=== PATIENT | male | born 1975 | race African-American/Black ===

== ENCOUNTER 2019-07-07 20:06 | Emergency (ER) | payer BC, OTHER ==
[2019-07-07] MEDS ORDERED: LIDOCAINE 2% INJ (20 MG/ML) 20 ML MDV INJ ONE (22:13)
[2019-07-07] MEDS ORDERED: LIDOCAINE 2% INJ (20 MG/ML) 20 ML MDV ONE (22:42)
--- NOTE | 2019-07-07 23:13 | ER Document Report ---
ED Wound - General Chief Complaint: Laceration Stated Complaint: LACERATION LEFT INDEX FINGER Time Seen by Provider: 07/07/19 22:13 Mode of Arrival: Ambulatory Information source: Patient TRAVEL OUTSIDE OF THE [place] IN LAST 30 DAYS: No - HPI Notes: Patient presents with a laceration to the index finger on the left hand. It is on the distal tip. He said he did it with a knife. It was not intentional. He now has pain to the distal aspect of his finger. It is constant. It radiates up the left arm. It is worse with movement and better with rest. It is a sharp sensation. It is moderate in intensity. He denies any other injuries. His tetanus is not up-to-date. Past Medical History - General Information source: Patient - Social History Smoking Status: Never Smoker Frequency of alcohol use: None Drug Abuse: None Family History: Reviewed & Not Pertinent - Immunizations Hx Diphtheria, Pertussis, Tetanus Vaccination: No Review of Systems - Review of Systems Constitutional: denies: Chills, Fever Cardiovascular: denies: Chest pain, Palpitations Respiratory: denies: Cough, Short of breath Gastrointestinal: denies: Diarrhea, Vomiting -: Yes All other systems reviewed and negative Physical Exam - Vital signs Vitals: Temp Pulse Resp BP Pulse Ox 97.6 F 80 18 150/85 H 97 07/07/19 20:13 07/07/19 20:13 07/07/19 20:13 07/07/19 20:13 07/07/19 20:13 Interpretation: Hypertensive - General General appearance: Appears well, Alert - HEENT Head: Normocephalic, Atraumatic Eyes: Normal Pupils: PERRL - Respiratory Respiratory status: No respiratory distress Chest status: Nontender Breath sounds: Normal Chest palpation: Normal - Cardiovascular Rhythm: Regular Heart sounds: Normal auscultation Murmur: No - Abdominal Inspection: Normal Distension: No distension Bowel sounds: Normal Tenderness: Nontender Organomegaly: No organomegaly - Back Back: Normal, Nontender - Extremities General upper extremity: Other - Right upper extremity is unremarkable. Left upper extremity has a 3 cm elliptical clean laceration to the distal tip of the left index finger. Bleeding is well controlled. Patient is neurovascular intact. Patient has capillary refill less than 2 seconds in this finger. There is no evidence of foreign body. General lower extremity: Normal inspection, Nontender, Normal color, Normal ROM, Normal temperature, Normal weight bearing. No: Cristóbal's sign - Neurological Neuro grossly intact: Yes Cognition: Normal Orientation: AAOx4 Venkat Coma Scale Eye Opening: Spontaneous Venkat Coma Scale Verbal: Oriented [place] Coma Scale Motor: Obeys Commands [place] Coma Scale Total: 15 Speech: Normal Motor strength normal: LUE, RUE, LLE, RLE Sensory: Normal - Psychological Associated symptoms: Normal affect, Normal mood - Skin Skin Temperature: Warm Skin Moisture: Dry Skin Color: Normal Course - Vital Signs Vital signs: Temp Pulse Resp BP Pulse Ox 97.6 F 80 18 150/85 H 97 07/07/19 20:13 07/07/19 20:13 07/07/19 20:13 07/07/19 20:13 07/07/19 20:13 Procedures - Immobilization Left Finger Time completed: 23:10 Pre-Proc Neuro Vasc Exam: Normal Immobilizer type: Finger splint (Static) Performed by: RN Post-Proc Neuro Vasc Exam: Normal Alignment checked and good: Yes - Laceration/Wound Repair Left Finger 2nd digit Time completed: 23:00 Wound length (cm): 3 Wound's Depth, Shape: Superficial, Linear Laceration pre-procedure: Sterile drapes applied Anesthetic type: 2% Lidocaine Volume Anesthetic (mLs): 4 - Digital block used Wound explored: Clean, No foreign body removed Irrigated w/ Saline (mLs): 250 Wound Repaired With: Sutures Suture Size/Type: 4:0, Ethilon Number of Sutures: 6 Post-procedure NV exam normal: Yes Complications: No Discharge - Discharge Clinical Impression: Finger laceration Qualifiers: Encounter type: initial encounter Finger: index finger Damage to nail status: without damage Foreign body presence: without foreign body Laterality: left Qualified Code(s): S61.211A - Laceration without foreign body of left index finger without damage to nail, initial encounter Condition: Stable Disposition: HOME, SELF-CARE Instructions: Laceration Care ([facility]), Tetanus Immunization Given ([facility]), Oral Narcotic Medication ([facility]), Prophylactic Antibiotic ([facility]) Additional Instructions: Please have your wound evaluated in 7 days for possible suture removal. Please call your family doctor first thing in the morning to schedule a recheck. Prescriptions: Cephalexin Monohydrate [Keflex 500 mg Capsule] 500 mg PO QID 5 Days #20 capsule Hydrocodone/Acetaminophen [[place]ster 5-325 mg Tablet] 1 tab PO Q6 PRN 3 Days #12 tablet PRN Reason: Forms: Return to Work, Elevated Blood Pressure
[2019-07-07] MEDS ORDERED: DIPH/PERTUSS(ACELL)/TETANUS VAC/PF 0.5 ML SYR (>=10YO) IM ONE (23:19)
[2019-07-07] MEDS ORDERED: CEPHALEXIN 500 MG CAPSULE PO ONE (23:19)
[2019-07-07 23:48] VITALS: BP 133/89
== END 2019-07-07 23:46 | disposition home or self-care (01) ==
LOC: ER 20:06
DX: S61.211A Laceration without foreign body of left index finger without damage to nail, initial encounter (principal); W26.0XXA Contact with knife, initial encounter; Z23 Encounter for immunization
CPT/HCPCS: 99282; 90471; 90715; 12002; J3490